=== PATIENT | male | born 1980 | race American Indian/Alaskan Native ===

== ENCOUNTER 2017-07-31 12:21 | Emergency (ER) | payer OTHER ==
[2017-07-31 12:31] VITALS: BP 134/70
[2017-07-31] MEDS ORDERED: MOTRIN PO ONE (13:36)
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
--- NOTE | 2017-07-31 14:26 | XRay Report ---
RIGHT FOOT, 3 views: History: Foot pain. Findings: There is normal bone mineralization. No evidence for fracture, bone lesion or erosive joint pathology. 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 The soft tissues are unremarkable. IMPRESSION: Degenerative changes in the midfoot. No acute process identified.
== END 2017-07-31 14:45 | disposition home or self-care (01) ==
LOC: ED 12:21
DX: S96.911A Strain of unspecified muscle and tendon at ankle and foot level, right foot, initial encounter (principal); S13.4XXA Sprain of ligaments of cervical spine, initial encounter; S39.012A Strain of muscle, fascia and tendon of lower back, initial encounter; V49.49XA Driver injured in collision with other motor vehicles in traffic accident, initial encounter; Y93.89 Activity, other specified; Y92.89 Other specified places as the place of occurrence of the external cause; Y99.8 Other external cause status
CPT/HCPCS: 99283

== ENCOUNTER 2017-11-23 23:50 | Inpatient (IN) | payer OTHER ==
[2017-11-24 00:58] LABS: INR 0.91 (0.87-1.13)
[2017-11-24 00:59] LABS: Partial Thromboplastin Time 24.6 Sec. (24.2-36.6)
--- NOTE | 2017-11-24 01:01 | XRay Report ---
FINAL REPORT PROCEDURE: XR CHEST ROUTINE 2V TECHNIQUE: PA and lateral chest radiographs were obtained. CPT 72679 HISTORY: SOB Abdominal pain COMPARISON: No prior studies are available for comparison. FINDINGS: Heart: Normal. Mediastinum/Vessels: Normal. Lungs/Pleural space: Normal. Bony thorax: No acute osseous abnormality. Other: IMPRESSION: Normal examination.
[2017-11-24 01:07] LABS: Alanine Aminotransferase 24 units/L (7-56); Albumin 4.8 g/dL (3.9-5); BUN/Creatinine Ratio 10; Blood Urea Nitrogen 8 mg/dL (9-20); Calcium 9.9 mg/dL (8.4-10.2); Hemolysis Index 1; Lipase 17 units/L (13-60)
[2017-11-24 01:31] LABS: Hematocrit 41.4 % (35.5-45.6); Hemoglobin 13.3 gm/dl (11.8-15.2); Mean Corpuscular HGB Conc 32 % (32-34); Mean Corpuscular Hemoglobin 28 pg (28-32); Mean Corpuscular Volume 86 fl (84-94); Platelet Count 203 K/mm3 (140-440); Red Blood Count 4.82 M/mm3 (3.65-5.03); Red Cell Distribution Width 14.8 % (13.2-15.2)
[2017-11-24 02:17] LABS: Basophils % (Auto) 0.2 % (0.0-1.8); Lymphocytes # (Auto) 1.1 K/mm3 (1.2-5.4); Lymphocytes % (Auto) 7.3 % (13.4-35.0); Monocytes # (Auto) 0.4 K/mm3 (0.0-0.8); Monocytes % (Auto) 2.7 % (0.0-7.3)
[2017-11-24 06:06] LABS: Bilirubin,Urine NEG (Negative); Blood,Urine NEG (Negative); Color,Urine Yellow (Yellow); Mucus,Urine 2+ /HPF
[2017-11-24] MEDS ORDERED: MORPHINE IV ONE (07:26)
[2017-11-24] MEDS ORDERED: ZOSYN/NS 4.5GM/100ML 4.5 GM/100 ML VIAL IV SCH (08:00)
--- NOTE | 2017-11-24 08:08 | Ultrasound Report ---
ULTRASOUND ABDOMEN LIMITED: TECHNIQUE: Transabdominal ultrasound with color Doppler interrogation. HISTORY: right upper quadrant abdominal pain, leukocytosis. COMPARISON: none. FINDINGS: LIVER: Mild fatty infiltration is suspected throughout the liver. No evidence for mass, enlargement or surface nodularity. BILIARY SYSTEM: Multiple large gallstones are identified within the gallbladder measuring up to 1.5 cm. No evidence for abnormal gallbladder distention, wall thickening or surrounding fluid. The CBD measures 4 mm. PANCREAS: Normal. RIGHT KIDNEY: Normal. PROXIMAL AORTA: Normal. ASCITES: None. IMPRESSION: Cholelithiasis but no convincing evidence for acute cholecystitis. Mild fatty infiltration of the liver.
[2017-11-24] MEDS: NACL 0.9% 1000 ML 1,000 ML IV ONE ×2 (08:47→08:49)
--- NOTE | 2017-11-24 10:11 | Emergency Department Report ---
ED Abdominal Pain HPI - General Chief Complaint: Abdominal Pain Stated Complaint: SOB/ABD PAIN Time Seen by Provider: 11/24/17 07:06 Source: patient Mode of arrival: Ambulatory Limitations: No Limitations - History of Present Illness Initial Comments: 37-year-old male with right upper quadrant pain. He states he has not had pain like this before. He thinks was precipitated by eating fish. He has no prior history of gallstones. He had some nausea and vomiting. He mentioned the shortness of breath. It was not persistent. He has not been coughing. He denies diarrhea, fever, chills or any symptoms. MD Complaint: abdominal pain -: Gradual Location: RUQ Radiation: none Migration to: no migration Severity scale (0 -10): 7 Quality: aching Consistency: constant Improves With: nothing Worsens With: eating Associated Symptoms: denies other symptoms, nausea, vomiting - Related Data Previous Rx's Medication Instructions Recorded Last Taken Type Cyclobenzaprine [Flexeril] 10 mg PO QHS PRN #7 tablet 07/31/17 Unknown Rx Ibuprofen [Motrin] 600 mg PO Q8H PRN #30 tablet 07/31/17 Unknown Rx Allergies Allergy/AdvReac Type Severity Reaction Status Date / Time No Known Allergies Allergy Unverified 07/31/17 12:31 ED Review of Systems ROS: Stated complaint: SOB/ABD PAIN Other details as noted in HPI Constitutional: denies: chills, fever Eyes: denies: eye pain, eye discharge, vision change ENT: denies: ear pain, throat pain Respiratory: shortness of breath (perhaps transient). denies: cough, wheezing Cardiovascular: denies: chest pain, palpitations Endocrine: no symptoms reported Gastrointestinal: abdominal pain, nausea, vomiting. denies: diarrhea Genitourinary: denies: urgency, dysuria Musculoskeletal: denies: back pain, joint swelling, arthralgia Skin: denies: rash, lesions Neurological: denies: headache, weakness, paresthesias Psychiatric: denies: anxiety, depression Hematological/Lymphatic: denies: easy bleeding, easy bruising ED Past Medical Hx - Past Medical History Previous Medical History?: No - Surgical History Past Surgical History?: No - Social History Smoking Status: Never Smoker - Medications Home Medications: Home Medications Medication Instructions Recorded Confirmed Last Taken Type Cyclobenzaprine [Flexeril] 10 mg PO QHS PRN #7 tablet 07/31/17 Unknown Rx Ibuprofen [Motrin] 600 mg PO Q8H PRN #30 tablet 07/31/17 Unknown Rx ED Physical Exam - General Limitations: No Limitations General appearance: alert, in no apparent distress - Head Head exam: Present: atraumatic, normocephalic - Eye Eye exam: Present: normal appearance, PERRL, EOMI. Absent: scleral icterus - ENT ENT exam: Present: mucous membranes moist - Neck Neck exam: Present: normal inspection. Absent: tenderness, meningismus - Respiratory Respiratory exam: Present: normal lung sounds bilaterally. Absent: respiratory distress - Cardiovascular Cardiovascular Exam: Present: regular rate, normal rhythm. Absent: systolic murmur, diastolic murmur, rubs, gallop - GI/Abdominal GI/Abdominal exam: Present: soft, tenderness (Right upper Quadrant), normal bowel sounds, other (obese). Absent: distended, guarding, rebound, rigid, organomegaly, mass, bruit, pulsatile mass - Rectal Rectal exam: Present: deferred - Extremities Exam Extremities exam: Present: normal inspection, full ROM, normal capillary refill. Absent: tenderness, pedal edema, joint swelling, calf tenderness - Back Exam Back exam: Present: normal inspection - Neurological Exam Neurological exam: Present: alert, oriented X3, CN II-XII intact. Absent: motor sensory deficit - Psychiatric Psychiatric exam: Present: normal affect, normal mood - Skin Skin exam: Present: warm, dry, intact, normal color. Absent: rash ED Course Vital Signs 11/23/17 11/24/17 11/24/17 23:59 00:23 06:03 Temperature 98.2 F 98.2 F 98.1 F Pulse Rate 64 64 71 Respiratory 18 18 18 Rate Blood Pressure 167/88 167/88 Blood Pressure 139/80 [Left] O2 Sat by Pulse 100 100 100 Oximetry 11/24/17 08:31 Temperature 98.3 F Pulse Rate 60 Respiratory 21 Rate Blood Pressure Blood Pressure 145/77 [Left] O2 Sat by Pulse 99 Oximetry - Reevaluation(s) Reevaluation #1: Patient was covered with Zosyn considering his leukocytosis. An ultrasound did show multiple gallstones. It didn't show pericholecystic fluid or wall thickening. Patient is admitted to the hospitalist service for further care and evaluation. A CT of his abdomen is yet pending. 11/24/17 10:09 ED Medical Decision Making - Lab Data Result diagrams: 11/24/17 00:37 11/24/17 00:37 Laboratory Results - last 24 hr 11/24/17 11/24/17 11/24/17 00:37 00:37 00:37 WBC 15.3 H RBC 4.82 Hgb 13.3 Hct 41.4 MCV 86 MCH 28 MCHC 32 RDW 14.8 Plt Count 203 Lymph % (Auto) 7.3 L Scurry % (Auto) 2.7 Eos % (Auto) 0.0 Baso % (Auto) 0.2 Lymph # 1.1 L Scurry # 0.4 Eos # 0.0 Baso # 0.0 Seg Neutrophils % 89.8 H Seg Neutrophils # 13.7 H PT INR APTT Sodium 136 L Potassium 3.9 Chloride 96.3 L Carbon Dioxide 24 Anion Gap 20 BUN 8 L Creatinine 0.8 Estimated GFR > 60 BUN/Creatinine Ratio 10 Glucose 134 H Calcium 9.9 Total Bilirubin 0.60 AST 25 ALT 24 Alkaline Phosphatase 87 Troponin T < 0.010 Total Protein 8.1 Albumin 4.8 Albumin/Globulin Ratio 1.5 Lipase 17 Urine Color Urine Turbidity Urine pH Ur Specific Carmen Urine Protein Urine Glucose (UA) Urine Ketones Urine Blood Urine Nitrite Urine Bilirubin Urine Urobilinogen Ur Leukocyte Esterase Urine WBC (Auto) Urine RBC (Auto) Urine Mucus 11/24/17 11/24/17 11/24/17 00:37 03:07 05:17 WBC RBC Hgb Hct MCV MCH MCHC RDW Plt Count Lymph % (Auto) Scurry % (Auto) Eos % (Auto) Baso % (Auto) Lymph # Scurry # Eos # Baso # Seg Neutrophils % Seg Neutrophils # PT 12.7 INR 0.91 APTT 24.6 Sodium Potassium Chloride Carbon Dioxide Anion Gap BUN Creatinine Estimated GFR BUN/Creatinine Ratio Glucose Calcium Total Bilirubin AST ALT Alkaline Phosphatase Troponin T < 0.010 Total Protein Albumin Albumin/Globulin Ratio Lipase Urine Color Yellow Urine Turbidity Slightly-cloudy Urine pH 6.0 Ur Specific Carmen 1.026 Urine Protein 30 mg/dl Urine Glucose (UA) Neg Urine Ketones Tr Urine Blood Neg Urine Nitrite Neg Urine Bilirubin Neg Urine Urobilinogen 2.0 Ur Leukocyte Esterase Neg Urine WBC (Auto) 3.0 Urine RBC (Auto) 2.0 Urine Mucus 2+ 11/24/17 06:37 WBC RBC Hgb Hct MCV MCH MCHC RDW Plt Count Lymph % (Auto) Scurry % (Auto) Eos % (Auto) Baso % (Auto) Lymph # Scurry # Eos # Baso # Seg Neutrophils % Seg Neutrophils # PT INR APTT Sodium Potassium Chloride Carbon Dioxide Anion Gap BUN Creatinine Estimated GFR BUN/Creatinine Ratio Glucose Calcium Total Bilirubin AST ALT Alkaline Phosphatase Troponin T < 0.010 Total Protein Albumin Albumin/Globulin Ratio Lipase Urine Color Urine Turbidity Urine pH Ur Specific Carmen Urine Protein Urine Glucose (UA) Urine Ketones Urine Blood Urine Nitrite Urine Bilirubin Urine Urobilinogen Ur Leukocyte Esterase Urine WBC (Auto) Urine RBC (Auto) Urine Mucus - EKG Data -: EKG Interpreted by Me EKG shows normal: sinus rhythm, axis, intervals, QRS complexes, ST-T waves Rate: bradycardia - EKG Data Interpretation: no acute changes - Radiology Data Radiology results: report reviewed LIVER: Mild fatty infiltration is suspected throughout the liver. No evidence for mass, enlargement or surface nodularity. BILIARY SYSTEM: Multiple large gallstones are identified within the gallbladder measuring up to 1.5 cm. No evidence for abnormal gallbladder distention, wall thickening or surrounding fluid. The CBD measures 4 mm. PANCREAS: Normal. RIGHT KIDNEY: Normal. PROXIMAL AORTA: Normal. ASCITES: None. IMPRESSION: Cholelithiasis but no convincing evidence for acute cholecystitis. Mild fatty infiltration of the liver. Critical care attestation.: If time is entered above; I have spent that time in minutes in the direct care of this critically ill patient, excluding procedure time. ED Disposition Clinical Impression: Biliary colic Leukocytosis Qualifiers: Leukocytosis type: unspecified Qualified Code(s): D72.829 - Elevated white blood cell count, unspecified Disposition: OP ADMIT IP TO THIS HOSP Is pt being admited?: Yes Does the pt Need Aspirin: No Condition: Stable Referrals: PRIMARY CARE, [Primary Care Provider] - 3-5 Days Time of Disposition: 10:12
--- NOTE | 2017-11-24 10:39 | Cat Scan Report ---
CT ABDOMEN PELVIS WITH CONTRAST: HISTORY: abdominal pain. COMPARISON: none. TECHNIQUE: Helical CT in 1.25mm intervals following IV contrast. Sagittal and coronal reconstructions. FINDINGS: Lung bases: Normal. Liver: Normal. Biliary system: Multiple subtle gallstones are identified within the gallbladder measuring up to 1.5 cm. The gallbladder is not distended but there is suggestion of trace pericholecystic fluid and minimal gallbladder wall thickening on CT. This was not clearly demonstrated on ultrasound performed the same day. The CBD and intrahepatic ducts are normal. Pancreas: Normal. Spleen: Normal. Kidneys/ureters/bladder: Normal. Adrenal glands: Normal. Aorta: Normal. Intestines: Normal. Appendix: Normal. Ascites: None. Adenopathy: None. Musculoskeletal: Normal. IMPRESSION: Cholelithiasis. Minimal gallbladder wall thickening and pericholecystic fluid as suggested on CT. See above.
[2017-11-24] MEDS ORDERED: NACL 0.9% 1000 ML 1,000 ML IV ONE (11:22)
--- NOTE | 2017-11-24 11:44 | History and Physical Report ---
History of Present Illness Date of examination: 11/24/17 Date of admission: 11/24/17 Chief complaint: Abdominal pain 1 day duration History of present illness: Patient is a 37-year-old gentleman who was at home yesterday when he started having right upper quadrant abdominal pain. This was sharp in nature, 10 over 10 in severity. Constant since onset. Associated with nausea and vomiting. Vomitus was yellowish in color. Denies any fever or chills. No diarrhea. Doubles over because of the pain. Presented to the emergency department where CT scan of the abdomen and pelvis showed evidence of cholelithiasis and fatty liver disease. Also has evidence of leukocytosis and hypoglycemia with a blood sugar in the 130s. Patient endorses a family history of diabetes mellitus. Surgical consult was obtained. Past History Past Medical History: other (low back pain) Past Surgical History: denies: No surgical history Social history: lives with family. denies: smoking, alcohol abuse, prescription drug abuse Family history: hypertension, other (diabetes) Medications and Allergies Allergies Allergy/AdvReac Type Severity Reaction Status Date / Time No Known Allergies Allergy Unverified 07/31/17 12:31 Home Medications Medication Instructions Recorded Confirmed Last Taken Type Naproxen [Naprosyn] 500 mg PO BID 11/24/17 11/24/17 Unknown History Active Meds: Active Medications Piperacillin Sod/Tazobactam Sod (Zosyn/Ns 4.5gm/100ml) 4.5 gm in 100 mls @ 200 mls/hr IV ONCE [facility] Last Admin: 11/24/17 08:19 Dose: 200 mls/hr Sodium Chloride (Nacl 0.9% 1000 Ml) 1,000 mls @ 125 mls/hr IV ONCE ONE Stop: 11/24/17 19:21 Review of systems Constitutional: Well Nouridhed and Well developed. Head: NC/ AT Eyes: Denies any visual impairments. No discharge from the eyes Nose: Denies any rhinorrhea or epistaxis Throats: Denies any post nasal drainage. Ears: Denies any hearing deficits Cardiovascular system: Denies any chest pain, shortness of breath, orthopnea, paroxysmal nocturnal dyspnea, or palpitation. Respiratory system: Denies any cough, difficulty breathing, wheezing, pleuritic chest pain, Gastrointestinal system: Has abdominal pain, nausea vomiting. No hematemesis or melena. Neurological system: Denies any headache, slurred speech, facial droop, lateralizing weakness Genitalia system: Denies any dysuria, urinary frequency or urgency, urethral discharge Skin: No rashes, hyperpigmented spots. Hematological: Denies any cervical tenderness hemorrhages or petechia. Immunological: Denies any multiple septic spots, Lymphatic: Denies any generalized lymphadenopathy. Endocrine: Denies any polyuria, polydipsia, polyphagia. No heat or cold intolerance. Musculoskeletal system: No joint pain or swelling. Psych: No visual, tactile, auditory or hallucination Exam - Physical Exam Narrative exam: Constitutional: Well-nourished well-developed. In no distress Head: Normocephalic atraumatic Eyes: Pupils are equal round and reactive to light Nose: No enlarged turbinates, no septal deviation. Mouth: Moist mucous membranes. Neck: Supple no thyromegaly. No bruit. No JVD Heart: Regular rate and rhythm, S1-S2 abnormal. No rubs murmurs or gallop Lungs: Clear to auscultation bilaterally no rales or rhonchi Abdomen: Right upper quadrant tenderness. Bowel sound are present. Extremities: No edema no cyanosis and no clubbing. Neuro: Alert oriented Oriented x3. No focal sensory or motor deficit. Skin: No rashes no hyperemic spots Psychiatry: Euthymic. Calm. - Constitutional Vitals: Temp Pulse Resp BP Pulse Ox 98.3 F 60 21 145/77 99 11/24/17 08:31 11/24/17 08:31 11/24/17 08:31 11/24/17 08:31 11/24/17 08:31 Results - Labs CBC & Chem 7: 11/24/17 00:37 11/24/17 00:37 Labs: Abnormal lab results 11/24/17 11/24/17 Range/Units 00:37 00:37 WBC 15.3 H (4.5-11.0) K/mm3 Lymph % (Auto) 7.3 L (13.4-35.0) % Lymph # 1.1 L (1.2-5.4) K/mm3 Seg Neutrophils % 89.8 H (40.0-70.0) % Seg Neutrophils # 13.7 H (1.8-7.7) K/mm3 Sodium 136 L (137-145) mmol/L Chloride 96.3 L (98-107) mmol/L BUN 8 L (9-20) mg/dL Glucose 134 H (75-100) mg/dL Assessment and Plan Patient is a 37-year-old gentleman who was at home yesterday when he started having right upper quadrant abdominal pain. This was sharp in nature, 10 over 10 in severity. Constant since onset. Associated with nausea and vomiting. Vomitus was yellowish in color. Denies any fever or chills. No diarrhea. Doubles over because of the pain. Presented to the emergency department where CT scan of the abdomen and pelvis showed evidence of cholelithiasis and fatty liver disease. Also has evidence of leukocytosis and hypoglycemia with a blood sugar in the 130s. Patient endorses a family history of diabetes mellitus. Surgical consult was obtained. Admitted to [facility] - Acute colic or loss cholecystitis Nothing by mouth, IV hydration, IV antibiotics, IV narcotics IV Zofran Surgical consult obtained. Discussed with Dr. Zuniga - Sepsis with leukocytosis, respiratory rate of 29, heart rate of 98. Blood culture, IV Zofran - Hypoglycemia with a family history of diabetes mellitus Obtain A1c. If greater than 6.5, commence sliding scale insulin every 6 Monitor blood sugar is every 8hr - DVT prophylaxis with heparin until with Pepcid
[2017-11-24] MEDS ORDERED: ceFAZolin 2 GM in NACL 0.9% 100 ML IV SCH (14:00)
--- NOTE | 2017-11-24 14:46 | Consultation ---
History of Present Illness Consult date: 11/24/17 Chief complaint: Abdominal pain - History of present illness History of present illness: 37-year-old male with no past medical history presented to the emergency room with complaints of one day of right upper quadrant abdominal pain, sharp, constant, radiating to the epigastrium and left upper quadrant. The patient has never had pain like this in the past. He states that he was doubled over and was having shortness of breath secondary to the pain. He did feel nauseous and self induced vomiting, which is nonbilious and nonbloody. He states that this did not help him. He denies fevers, chills, chest pain, shortness of breath, constipation, diarrhea. He is hungry right now. He states his pain has improved slightly since receiving treatment in the emergency room. Past History Past Medical History: other (herniated disc, history of skull fracture) Past Surgical History: No surgical history Social history: no significant social history Family history: cancer, hypertension, other (DM) Medications and Allergies Allergies Allergy/AdvReac Type Severity Reaction Status Date / Time No Known Allergies Allergy Unverified 07/31/17 12:31 Home Medications Medication Instructions Recorded Confirmed Last Taken Type Naproxen [Naprosyn] 500 mg PO BID 11/24/17 11/24/17 Unknown History Active Meds: Active Medications Enoxaparin Sodium (Lovenox) 40 mg SUB-Q QDAY@2200 [facility] Piperacillin Sod/Tazobactam Sod (Zosyn/Ns 4.5gm/100ml) 4.5 gm in 100 mls @ 200 mls/hr IV ONCE [facility] Last Admin: 11/24/17 08:19 Dose: 200 mls/hr Sodium Chloride (Nacl 0.9% 1000 Ml) 1,000 mls @ 125 mls/hr IV ONCE ONE Stop: 11/24/17 19:21 Last Admin: 11/24/17 11:53 Dose: 125 mls/hr Cefazolin Sodium 2 gm/ Sodium (Chloride) 100 mls @ 200 mls/hr IV Q8HR [facility] Last Admin: 11/24/17 13:35 Dose: 200 mls/hr Morphine Sulfate (Morphine) 2 mg IV Q4H PRN PRN Reason: Pain, Moderate (4-6) Review of Systems All systems: negative (10 point review of systems was performed and negative except for that listed in HPI) Exam Vital Signs Temp Pulse Resp BP Pulse Ox 98.2 F 64 18 167/88 100 11/23/17 23:59 11/23/17 23:59 11/23/17 23:59 11/23/17 23:59 11/23/17 23:59 Narrative exam: Gen.: Awake, alert, oriented 3. No apparent distress ENT: No scleral icterus or conjunctival pallor CV: S1, S2 present Respiratory: Clear to auscultation bilaterally, no wheezes, rales, rhonchi Abdomen: Soft, nondistended, positive tenderness to palpation RUQ. No rebound, rigidity, guarding Extremities: No clubbing, cyanosis, edema Results - Labs 11/24/17 00:37 11/24/17 00:37 Abnormal lab results 11/24/17 11/24/17 Range/Units 00:37 00:37 WBC 15.3 H (4.5-11.0) K/mm3 Lymph % (Auto) 7.3 L (13.4-35.0) % Lymph # 1.1 L (1.2-5.4) K/mm3 Seg Neutrophils % 89.8 H (40.0-70.0) % Seg Neutrophils # 13.7 H (1.8-7.7) K/mm3 Sodium 136 L (137-145) mmol/L Chloride 96.3 L (98-107) mmol/L BUN 8 L (9-20) mg/dL Glucose 134 H (75-100) mg/dL Diabetes panel 11/24/17 Range/Units 00:37 Sodium 136 L (137-145) mmol/L Potassium 3.9 (3.6-5.0) mmol/L Chloride 96.3 L (98-107) mmol/L Carbon Dioxide 24 (22-30) mmol/L BUN 8 L (9-20) mg/dL Creatinine 0.8 (0.8-1.5) mg/dL Glucose 134 H (75-100) mg/dL Calcium 9.9 (8.4-10.2) mg/dL AST 25 (5-40) units/L ALT 24 (7-56) units/L Alkaline Phosphatase 87 (35-129) units/L Total Protein 8.1 (6.3-8.2) g/dL Albumin 4.8 (3.9-5) g/dL Calcium panel 11/24/17 Range/Units 00:37 Calcium 9.9 (8.4-10.2) mg/dL Albumin 4.8 (3.9-5) g/dL Pituitary panel 11/24/17 Range/Units 00:37 Sodium 136 L (137-145) mmol/L Potassium 3.9 (3.6-5.0) mmol/L Chloride 96.3 L (98-107) mmol/L Carbon Dioxide 24 (22-30) mmol/L BUN 8 L (9-20) mg/dL Creatinine 0.8 (0.8-1.5) mg/dL Glucose 134 H (75-100) mg/dL Calcium 9.9 (8.4-10.2) mg/dL Adrenal panel 11/24/17 Range/Units 00:37 Sodium 136 L (137-145) mmol/L Potassium 3.9 (3.6-5.0) mmol/L Chloride 96.3 L (98-107) mmol/L Carbon Dioxide 24 (22-30) mmol/L BUN 8 L (9-20) mg/dL Creatinine 0.8 (0.8-1.5) mg/dL Glucose 134 H (75-100) mg/dL Calcium 9.9 (8.4-10.2) mg/dL Total Bilirubin 0.60 (0.1-1.2) mg/dL AST 25 (5-40) units/L ALT 24 (7-56) units/L Alkaline Phosphatase 87 (35-129) units/L Total Protein 8.1 (6.3-8.2) g/dL Albumin 4.8 (3.9-5) g/dL - Imaging CT scan - abdomen: report reviewed, image reviewed CT scan - pelvis: report reviewed, image reviewed US - abdomen: report reviewed, image reviewed Assessment and Plan 37 yo M with acute cholecystitis Plan: 1. Liquid diet ok, NPO p MN 2. IVF 3. IV abx 4. prn pain and nausea control 5. DVT ppx 6. LFTs in am 7. plan for OR in am 11/25/17 for laparoscopic cholecystectomy, possible open. All risks, benefits, alternatives discussed with the patient and questions answered. Consent obtained. Thank you for this consultation, please call with questions or concerns.
[2017-11-24] MEDS ORDERED: ZOFRAN IV PRN (14:48)
--- NOTE | 2017-11-24 15:21 | Anesthesia Consultation ---
Anesthesia Consult and Med Hx Date of service: 11/25/17 - Airway Anesthetic Teeth Evaluation: Good ROM Head & Neck: Adequate Mental/Hyoid Distance: Adequate Mallampati Class: Class II Intubation Access Assessment: Probably Good - Pulmonary Exam CTA: Yes - Cardiac Exam Cardiac Exam: RRR - Pre-Operative Health Status ASA Pre-Surgery Classification: ASA3 Proposed Anesthetic Plan: General - Pulmonary Hx Smoking: No Hx Asthma: No Hx Sleep Apnea: Yes (Uses CPAP every night) - Cardiovascular System Hx Hypertension: No Hx Heart Attack/AMI: No - Central Nervous System Hx Neuromuscular Disorder: No - Gastrointestinal Hx Gastroesophageal Reflux Disease: No - Endocrine Hx Renal Disease: No Hx Insulin Dependent Diabetes: No Hx Non-Insulin Dependent Diabetes: No Hx Thyroid Disease: No - Hematic Hx Anemia: No Hx Sickle Cell Disease: No - Other Systems Hx Alcohol Use: No Hx Substance Use: No - Additional Comments Anesthesia Medical History Comments: No GAC, No FHAC
[2017-11-24] MEDS: ZOSYN/NS 4.5GM/100ML 4.5 GM/100 ML VIAL IV SCH ×2 (18:47→22:42)
[2017-11-24] MEDS: D5W/0.45% NACL/KCL 10 MEQ 10 MEQ/1,000 ML BAG IV SCH (18:52)
[2017-11-24] MEDS: LOVENOX SUB-Q SCH (22:42)
[2017-11-25] MEDS ORDERED: NACL 0.9% IR ONE ×2
[2017-11-25] MEDS ORDERED: MARCAINE 0.5% INFILTRATI ONE ×2
[2017-11-25] MEDS ORDERED: XYLOCAINE 1% 20 mL INFILTRATI ONE ×2
[2017-11-25 05:21] LABS: Hematocrit 40.1 % (35.5-45.6); Hemoglobin 12.9 gm/dl (11.8-15.2); Mean Corpuscular HGB Conc 32 % (32-34); Mean Corpuscular Hemoglobin 28 pg (28-32); Mean Corpuscular Volume 85 fl (84-94); Platelet Count 164 K/mm3 (140-440); Red Cell Distribution Width 14.6 % (13.2-15.2)
[2017-11-25] MEDS: ZOSYN/NS 4.5GM/100ML 4.5 GM/100 ML VIAL IV SCH (05:35)
[2017-11-25 05:43] LABS: Alanine Aminotransferase 17 units/L (7-56); Albumin 3.5 g/dL (3.9-5); BUN/Creatinine Ratio 10; Blood Urea Nitrogen 10 mg/dL (9-20); Calcium 8.6 mg/dL (8.4-10.2); Hemolysis Index 1
[2017-11-25] MEDS: D5W/0.45% NACL/KCL 10 MEQ 10 MEQ/1,000 ML BAG IV SCH (06:34)
[2017-11-25] MEDS ORDERED: MARCAINE 0.5% 30 ML INFILTRATI ONE (09:08)
[2017-11-25] MEDS ORDERED: XYLOCAINE 1% 20 mL ONE (09:08)
[2017-11-25] MEDS ORDERED: SUBLIMAZE ONE ×3 (09:10→12:34)
[2017-11-25] MEDS ORDERED: LACTATED RINGERS 1,000 ML ONE ×2 (09:30→12:44)
[2017-11-25] MEDS ORDERED: ZOFRAN IV PRN (09:43)
[2017-11-25] MEDS ORDERED: DILAUDID IV PRN (09:43)
[2017-11-25] MEDS ORDERED: DEMEROL IV PRN (09:43)
--- NOTE | 2017-11-25 09:48 | Anesthesia Day of Surgery ---
Anesthesia Day of Surgery - Day of Surgery Patient Examined: Yes Patient H&P Reviewed: Yes Patient is NPO: Yes
[2017-11-25] MEDS ORDERED: VERSED IV NR (10:00)
[2017-11-25] MEDS ORDERED: LACTATED RINGERS 1,000 ML IV SCH ×2 (10:00)
[2017-11-25] MEDS ORDERED: QUELICIN ONE (10:23)
--- NOTE | 2017-11-25 10:33 | Progress Note ---
Assessment and Plan Patient is a 37-year-old gentleman who was at home yesterday when he started having right upper quadrant abdominal pain. This was sharp in nature, 10 over 10 in severity. Constant since onset. Associated with nausea and vomiting. Vomitus was yellowish in color. Denies any fever or chills. No diarrhea. Doubles over because of the pain. Presented to the emergency department where CT scan of the abdomen and pelvis showed evidence of cholelithiasis and fatty liver disease. Also has evidence of leukocytosis and hypoglycemia with a blood sugar in the 130s. Patient endorses a family history of diabetes mellitus. Surgical consult was obtained. - Acute calculous cholecystitis Nothing by mouth, IV hydration, IV antibiotics, IV narcotics IV Zofran Surgical consult obtained. Discussed with Dr. Zuniga - Sepsis with leukocytosis, respiratory rate of 29, heart rate of 98. Blood culture, IV Zofran - Hypoglycemia with a family history of diabetes mellitus Obtain A1c. If greater than 6.5, commence sliding scale insulin every 6 Monitor blood sugar is every 8hr - DVT prophylaxis with heparin until with Pepcid Subjective Date of service: 11/25/17 Principal diagnosis: acute cholecystitis, hypoglycemia Interval history: Patient seen and examined. No distress. No fever. Objective - Exam Narrative Exam: Constitutional: Well-nourished well-developed.In no distress Head: Normocephalic atraumatic Eyes: Pupils are equal round and reactive to light Nose: No enlarged turbinates, no septal deviation. Mouth: Moist mucous membranes. Neck: Supple no thyromegaly. No bruit. No JVD Heart: Regular rate and rhythm, S1-S2 abnormal. No rubs murmurs or gallop Lungs: Clear to auscultation bilaterally no rales or rhonchi Abdomen: Right upper quadrant tenderness. Bowel sound are present. Extremities: No edema no cyanosis and no clubbing. Neuro: Alert oriented Oriented x3. No focal sensory or motor deficit. Skin: No rashes no hyperemic spots Psychiatry: Euthymic. Calm. - Constitutional Vitals: Vital Signs - 12hr 11/24/17 11/25/17 11/25/17 23:42 05:41 09:15 Temperature 98.7 F 99.3 F 97.8 F Pulse Rate 82 74 80 Respiratory 18 20 20 Rate Blood Pressure 119/67 112/62 124/57 O2 Sat by Pulse 99 98 100 Oximetry 11/25/17 09:38 Temperature 97.8 F Pulse Rate 80 Respiratory 20 Rate Blood Pressure 124/57 O2 Sat by Pulse 100 Oximetry - Labs CBC & Chem 7: 11/25/17 04:45 11/25/17 04:45 Labs: Abnormal lab results 11/25/17 11/25/17 Range/Units 04:45 04:45 WBC 12.0 H (4.5-11.0) K/mm3 Glucose 110 H (75-100) mg/dL Albumin 3.5 L (3.9-5) g/dL
[2017-11-25] MEDS ORDERED: ZOFRAN ONE (10:56)
[2017-11-25] MEDS ORDERED: ROBINUL ONE (11:00)
[2017-11-25] MEDS ORDERED: XYLOCAINE MPF 2% ONE (11:00)
[2017-11-25] MEDS ORDERED: BLOXIVERZ ONE (11:00)
[2017-11-25] MEDS ORDERED: ZEMURON IV ONE ×2 (11:31)
[2017-11-25] MEDS ORDERED: DILAUDID ONE (11:31)
[2017-11-25] MEDS ORDERED: DIPRIVAN 10 MG/ML IV ONE (11:31)
--- NOTE | 2017-11-25 13:16 | Post Operative Note ---
Date of procedure: 11/25/17 Pre-op diagnosis: acute cholecystitis Post-op diagnosis: same Findings: Thickened gallbladder with pericholecystis fluid and stones impacted in gallbladder neck. Scarred and chronically inflamed gallbladder neck very close to CBD and major vessels. Procedure: Laparoscopic cholecystectomy Anesthesia: GETA, local Surgeon: SOHEILA BARKLEY Inside Barrel Polisher: AICHA HENRY Estimated blood loss: 50-100ml Pathology: list (gallbladder and stones) Specimen disposition: to lab Condition: stable Disposition: PACU
[2017-11-25] MEDS ORDERED: CHLORASEPTIC MM PRN (17:04)
[2017-11-25] MEDS: MORPHINE IV PRN ×2 (18:19→22:21)
[2017-11-25] MEDS: LOVENOX SUB-Q SCH (22:22)
[2017-11-25] MEDS: PERCOCET 5/325 PO PRN (23:44)
[2017-11-26] MEDS: D5W/0.45% NACL/KCL 10 MEQ 10 MEQ/1,000 ML BAG IV SCH (02:00)
[2017-11-26 05:58] LABS: Basophils % (Auto) 0.3 % (0.0-1.8); Eosinophils % (Auto) 0.2 % (0.0-4.3); Hematocrit 37.6 % (35.5-45.6); Lymphocytes # (Auto) 2.2 K/mm3 (1.2-5.4); Lymphocytes % (Auto) 17.6 % (13.4-35.0); Mean Corpuscular HGB Conc 32 % (32-34); Mean Corpuscular Hemoglobin 28 pg (28-32); Mean Corpuscular Volume 87 fl (84-94); Monocytes # (Auto) 0.9 K/mm3 (0.0-0.8); Monocytes % (Auto) 7.6 % (0.0-7.3); Platelet Count 175 K/mm3 (140-440); Red Blood Count 4.35 M/mm3 (3.65-5.03)
[2017-11-26 06:20] LABS: Alanine Aminotransferase 38 units/L (7-56); Albumin 3.4 g/dL (3.9-5); BUN/Creatinine Ratio 10; Blood Urea Nitrogen 9 mg/dL (9-20); Calcium 8.5 mg/dL (8.4-10.2); Hemolysis Index 0
[2017-11-26] MEDS: PERCOCET 5/325 PO PRN (10:19)
--- NOTE | 2017-11-26 12:15 | Progress Note ---
Assessment and Plan 37 yo M s/p Laparoscopic cholecystectomy POD 1 1. THIEN drain removed 2. reg diet 3. dc IVF 4. IS/pulm toilet 5. PO pain control 6. OOB/ambulate 7. ok to dc home from surgery standpoint. D/W Dr. Ridley Thank you. Please call with questions or concerns. Subjective Date of service: 11/26/17 Narrative: Patient seen and examined. He complains of incisional pain and pain around the THIEN drain. No fevers, chills. He tolerated a regular diet. His pain is controlled with oral pain medications. Objective Vital Signs - 12hr 11/26/17 05:44 Temperature 97.9 F Pulse Rate 58 L Respiratory 20 Rate Blood Pressure 110/54 O2 Sat by Pulse 100 Oximetry - General physical appearance Narrative Exam: Gen.: Awake, alert, oriented 3. No apparent distress CV: S1, S2 present Respiratory: Even and unlabored Abdomen: Soft, nondistended, appropriate tenderness near skin incisions. Right lateral THIEN drain with minimal serosanguineous drainage. The suture at the skin was cut and the drain taken off suction, the drain was removed intact. The incision site was covered with a foam dressing. Extremities: No clubbing, cyanosis, edema - Labs 11/26/17 05:11 11/26/17 05:11 Diabetes panel 11/26/17 Range/Units 05:11 Sodium 137 (137-145) mmol/L Potassium 4.2 (3.6-5.0) mmol/L Chloride 99.2 (98-107) mmol/L Carbon Dioxide 27 (22-30) mmol/L BUN 9 (9-20) mg/dL Creatinine 0.9 (0.8-1.5) mg/dL Glucose 120 H (75-100) mg/dL Calcium 8.5 (8.4-10.2) mg/dL AST 34 (5-40) units/L ALT 38 (7-56) units/L Alkaline Phosphatase 61 (35-129) units/L Total Protein 6.4 (6.3-8.2) g/dL Albumin 3.4 L (3.9-5) g/dL Calcium panel 11/26/17 Range/Units 05:11 Calcium 8.5 (8.4-10.2) mg/dL Albumin 3.4 L (3.9-5) g/dL Pituitary panel 11/26/17 Range/Units 05:11 Sodium 137 (137-145) mmol/L Potassium 4.2 (3.6-5.0) mmol/L Chloride 99.2 (98-107) mmol/L Carbon Dioxide 27 (22-30) mmol/L BUN 9 (9-20) mg/dL Creatinine 0.9 (0.8-1.5) mg/dL Glucose 120 H (75-100) mg/dL Calcium 8.5 (8.4-10.2) mg/dL Adrenal panel 11/26/17 Range/Units 05:11 Sodium 137 (137-145) mmol/L Potassium 4.2 (3.6-5.0) mmol/L Chloride 99.2 (98-107) mmol/L Carbon Dioxide 27 (22-30) mmol/L BUN 9 (9-20) mg/dL Creatinine 0.9 (0.8-1.5) mg/dL Glucose 120 H (75-100) mg/dL Calcium 8.5 (8.4-10.2) mg/dL Total Bilirubin 0.40 (0.1-1.2) mg/dL AST 34 (5-40) units/L ALT 38 (7-56) units/L Alkaline Phosphatase 61 (35-129) units/L Total Protein 6.4 (6.3-8.2) g/dL Albumin 3.4 L (3.9-5) g/dL
--- NOTE | 2017-11-26 12:29 | Discharge Summary ---
<LEAH DINH - Last Filed: 11/26/17 15:36> Providers - Providers Date of Admission: 11/24/17 11:14 Attending physician: LEAH DINH MD 11/24/17 11:48 Consult to Physician [CONS] Routine Comment: Consulting Provider: SHOEILA BARKLEY Physician Instructions: Reason For Exam: acutecholecyctitis Primary care physician: SCREENER PERFUMER Hospitalization Condition: Stable Disposition: DC-01 TO HOME OR SELFCARE Time spent for discharge: 35 MINS Exam - Constitutional Vitals: Temp Pulse Resp BP Pulse Ox 97.9 F 58 L 20 110/54 100 11/26/17 05:44 11/26/17 05:44 11/26/17 05:44 11/26/17 05:44 11/26/17 05:44 Plan Activity: advance as tolerated, fall precautions Diet: low fat Special Instructions: record blood sugar diary, smoking cessation Follow up with: PRIMARY CARE, [Primary Care Provider] - 3-5 Days SOHEILA BARKLEY DO [Staff Physician] - 14 Days Prescriptions: oxyCODONE /ACETAMINOPHEN [Percocet 5/325 mg] 1 tab PO Q6H PRN #14 tablet PRN Reason: Pain, Moderate (4-6) <SOHEILA BARKLEY - Last Filed: 11/28/17 16:18> Providers - Providers Date of Admission: 11/24/17 11:14 Date of discharge: 11/27/17 Attending physician: LEAH DINH MD 11/24/17 11:48 Consult to Physician [CONS] Routine Comment: Consulting Provider: SOHEILA BARKLEY Physician Instructions: Reason For Exam: acutecholecyctitis Primary care physician: SCREENER PERFUMER Hospitalization Reason for admission: cholecystitis Pertinent studies: abd u/s Procedures: laparoscopic cholecystectomy Hospital course: Patient underwent the above surgical procedure and post operative course was uncomplicated. He was discharged to home on post operative day 1. He was tolerating a regular diet, pain controlled, and ambulating on his own. Core Measure Documentation - Palliative Care Palliative Care/ Comfort Measures: Not Applicable - Core Measures Any of the following diagnoses?: none Exam - Constitutional Vitals: Temp Pulse Resp BP Pulse Ox 97.9 F 58 L 20 110/54 100 11/26/17 05:44 11/26/17 05:44 11/26/17 05:44 11/26/17 05:44 11/26/17 05:44 Plan Activity: other (No driving while taking pain medications. No heavy lifting more than 20 lbs for the next 1 week.) Wound: open to air (May shower with soap and water. Pat incisions dry, do not scrub. Do not submerge incisions in water.) Additional Instructions: Call surgeon if you are having fever>100.4, intractable abdominal pain, nausea, vomiting, or if you have redness/drainage from incisions.
[2017-11-26 14:12] VITALS: BP 96/58
--- NOTE | 2017-11-27 14:11 | Operative Report ---
Operative Report Operative Report: Date of procedure: 11/25/17 Pre-op diagnosis: acute cholecystitis Post-op diagnosis: same Findings: Thickened gallbladder with pericholecystic fluid and stones impacted in gallbladder neck. Scarred and chronically inflamed gallbladder neck very close to CBD and major vessels. Procedure: Laparoscopic cholecystectomy Anesthesia: HECTOR, local Surgeon: SOHEILA BARKLEY Director Global: AICHA HENRY Estimated blood loss: 50-100ml Pathology: list (gallbladder and stones) Specimen disposition: to lab Condition: stable Disposition: PACU HPI and indication: 37 yo M with hx of sleep apnea presented to hospital with severe RUQ abd pain. Labs and imaging were consistent with infection secondary to acute cholecystitis. Cholecystectomy was recommended. All risks, benefits, alternatives to laparoscopic, possible open cholecystectomy, possible cholangiogram were discussed with the patient. All questions were answered. Consent was signed. Procedure in detail: The patient was identified in the preoperative area, taken back to the operating room, placed on the operating room table in supine position. After anesthesia was induced, the abdomen was prepped and draped in the usual sterile fashion and a timeout performed. Local anesthetic was infiltrated into all skin incision sites. Using a 11 blade, a small supra umbilical incision was made through which a Veress needle was inserted into the abdomen. The position of the Veress needle was confirmed using the saline drop test. The abdomen was then insufflated to 15 mmHg. The Veress needle was then removed and a 5 mm Optiview trocar was placed through this incision. The abdomen was inspected and there was no underlying injury to any intra-abdominal structures. An additional 12 mm subxiphoid trocar, and 2 5mm right upper quadrant trocars were placed all under direct visualization. The patient was placed in reverse Trendelenburg position and tilted to the left. The gallbladder was visualized and appeared chronically inflamed with a thickened gallbladder wall. The gallbladder was grasped and lifted cephalad and the gallbladder neck was carefully freed from adhesions using blunt dissection. The gallbladder neck was chronically inflamed and had dense scar tissue. Therefore it was decided to perform the dissection from the dome down procedure. The peritoneum surrounding the gallbladder was dissected from the fundus of the gallbladder using hook electrocautery. Lateral and medial peritoneal attachments were taken down in a similar fashion until the gallbladder neck was encountered. The gallbladder neck was impacted with multiple gallstones which were nonmobile. A incision was made in the gallbladder, in order to facilitate retrieval of these impacted stones. Once the impacted stones were removed, an attempt was made to carefully dissect out the cystic duct and artery. A very careful adhesiolysis was performed and unfortunately, the gallbladder neck was scarred to the common bile duct and could not safely be . Therefore, after visual inspection to ensure that no additional stones were impacted in the gallbladder neck, the gallbladder was transected proximal to the area of chronic scarring near the CBD. This was accomplished using a echelon flexed 35 mm white load stapler. Please note, this incorporated the incision made in the neck of the gallbladder. The gallbladder was placed into an Endo Catch bag along with the retrieve stones and removed from the abdomen via the 12 mm subxiphoid port. The gallbladder fossa was irrigated and inspected. The staple line was visualized and intact. There was no bile leakage and hemostasis was ensured. The patient was then placed in neutral position in Morison's pouch was irrigated until the irrigant returned clear. A 19 Serbian Rodolfo drain was placed in the gallbladder fossa through the right lateral abdominal port. This was sutured into place using a 3-0 nylon drain stitch. The remaining ports were removed under direct visualization and the abdomen desufflated. The 12 mm port fascia was closed with interrupted 0 Vicryl sutures. The skin incisions were closed with 4-0 Monocryl subcuticular stitches and skin glue. All incisions were once again infiltrated with local anesthetic. At the end of the case, all sponge, instrument, sharp counts were correct 2. The patient was woken from anesthesia, extubated and taken to PACU in stable condition.
== END 2017-11-26 16:55 | disposition home or self-care (01) | DRG 854 ==
LOC: ED 23:50 → 3A 11-24 11:14
PROVIDERS: ADMIT Internal Medicine; ATTEND Internal Medicine
PROC: 0FT44ZZ Resection of Gallbladder, Percutaneous Endoscopic Approach (ICD-10-PCS; principal; 2017-11-25)
DX: A41.9 Sepsis, unspecified organism (principal); K80.00 Calculus of gallbladder with acute cholecystitis without obstruction; E16.2 Hypoglycemia, unspecified; M54.5 Low back pain; G47.30 Sleep apnea, unspecified; Z83.3 Family history of diabetes mellitus; Z82.49 Family history of ischemic heart disease and other diseases of the circulatory system; Z79.1 Long term (current) use of non-steroidal anti-inflammatories (NSAID); Z80.9 Family history of malignant neoplasm, unspecified
CPT/HCPCS: 36415; 71046; 74177; 76705; 80053; 81001; 83690; 84484; 85025; 85027; 85610; 85730; 88304; 93005; 93010; A4217; J0330; J0690; J1170; J1650; J2270; J2405; J2543; J2704; J2710; J3010; J7030; J7120; Q9967

== ENCOUNTER 2020-08-03 17:56 | Emergency (ER) | payer SELFPAY ==
[2020-08-03 18:11] VITALS: BP 165/92
--- NOTE | 2020-08-03 18:58 | Emergency Department Report ---
Chief Complaint: Fever Stated Complaint: FEVER Time Seen by Provider: 08/03/20 18:54 - HPI History of Present Illness: 40-year-old morbid obese -[place] male presents to the emergency room for Zazueta fever since this morning. Patient denies any chills no nausea no vomiting no abdominal pain no chest pain or shortness of breath no cough. Denies any ear pain sore throat abdominal pain testicular pain dysuria penile discharge any open wounds. Patient states he took Tylenol at 4 PM. Patient has no past medical history no known drug allergies - Exam Vital Signs: Vital Signs 08/03/20 18:08 Temperature 100.7 F H Pulse Rate 80 Respiratory 20 Rate Blood Pressure 165/92 [Right] O2 Sat by Pulse 98 Oximetry Physical Exam: General: Awake, appropriately interactive, no acute distress. HEENT: Patent no tonsillary hypertrophy or exudate nonerythematous Neck: Supple. Full range of motion intact. Cardiovascular: Normal peripheral perfusion. Pulmonary: No respiratory distress. Patient is speaking normally without use of accessory muscles. Skin: No apparent rashes or lesions. Neurological: No facial asymmetry. Speech is clear. Follows commands. Patient is alert and oriented. Musculoskeletal: Full range of motion, no crepitus. No tenderness to palpate nonerythematous no edema test appreciated. Able to bear weight and ambulate without difficulty. Distal neurovascular and motor/sensory function is intact. Psych: Cooperative. Appropriate mood and affect. MSE screening note: Focused history and physical exam performed. Due to findings the following was ordered: 40-year-old morbid obese -[place] male presents to the emergency room for Zazueta fever since this morning. Patient denies any chills no nausea no vomiting no abdominal pain no chest pain or shortness of breath no cough. Denies any ear pain sore throat abdominal pain testicular pain dysuria penile discharge any open wounds. Patient states he took Tylenol at 4 PM. Patient has no past medical history no known drug allergies. Discussed the patient continue with Tylenol ibuprofen for fever. Follow-up with his primary care provider. ED Disposition for MSE Disposition: Z- MED SCREENING EXAM-LEFT Is pt being admited?: No Does the pt Need Aspirin: No Condition: Stable Additional Instructions: Recommend Tylenol ibuprofen and follow-up with your primary care provider. Be sure to increase your fluid intake. Recommend Covid testing. Referrals: SEBASTIEN RIVAS MD [Staff Physician] - 3-5 Days JUICE MCARTHUR MD [Staff Physician] - 3-5 Days [facility] [Provider Group] - 3-5 Days
== END 2020-08-03 22:32 | disposition left against medical advice (07) ==
LOC: ED 17:56
DX: R50.9 Fever, unspecified (principal); Z53.21 Procedure and treatment not carried out due to patient leaving prior to being seen by health care provider